=== PATIENT | male | born 1980 ===

== ENCOUNTER 2021-06-23 09:40 | Emergency (ER) | payer SELFPAY ==
[~2021-06-23] VITALS: Ht 167.6 cm; Wt 54.8 kg
[2021-06-23 09:43] VITALS: BP 155/92
--- NOTE | 2021-06-23 10:00 | NUR ---
DISCHARGE SPECIALIST NOTE: DROPLET PLUS CONTACT PRECAUTIONS INITIATED.
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
== END 2021-06-23 10:49 | disposition home or self-care (01) ==
LOC: ED 10:20
DX: H92.01 Otalgia, right ear (principal)
CPT/HCPCS: 99281